=== PATIENT | female | born 1965 | race Caucasian/White ===

== ENCOUNTER → 2016-10-28 | Outpatient (CLI) | payer OTHER, MEDICAID ==
[~2016-10-28] MED LIST: GADOBUTROL 7.5 MMOL/7.5 ML VIAL ONE
== END | disposition home or self-care (01) ==
LOC: CFH 09:03
PROVIDERS: ATTEND Specialist
DX: H90.3 Sensorineural hearing loss, bilateral (principal); J31.0 Chronic rhinitis; J37.0 Chronic laryngitis; K21.9 Gastro-esophageal reflux disease without esophagitis
CPT/HCPCS: 70480; 70553; A9585

== ENCOUNTER → 2017-04-30 | Outpatient (CLI) | payer OTHER, MEDICAID | LOC: RAD 10:49 | PROVIDERS: ATTEND Internal Medicine | DX: Z01.818 Encounter for other preprocedural examination (principal) | CPT/HCPCS: 71020 ==

== ENCOUNTER → 2019-10-20 | Outpatient (CLI) | payer MEDICAID | END | disposition home or self-care (01) | LOC: RAD 08:41 | PROVIDERS: ATTEND Family Medicine | DX: R94.5 Abnormal results of liver function studies (principal); B96.81 Helicobacter pylori [H. pylori] as the cause of diseases classified elsewhere | CPT/HCPCS: 76705 ==

== ENCOUNTER 2020-10-23 06:38 | Inpatient (IN) | payer MEDICAID ==
[~2020-10-23] VITALS: Ht 167.6 cm; Wt 75.8 kg
[2020-10-23] MEDS ORDERED: SODIUM CHLORIDE 0.9% 1,000ML IVBOLUS ONE (07:00)
[2020-10-23] MEDS ORDERED: SODIUM CHLORIDE FLUSH 10ML SYR IVF ONE (07:00)
[2020-10-23 07:31] LABS: O2 FLOW ROOM AIR L/min; PH, VENOUS 7.394 pH (7.320-7.420)
[2020-10-23 07:38] LABS: MICROSCOPIC INDICATED
[2020-10-23 07:47] LABS: ALBUMIN 3.3 g/dL (3.4-5.0); ANION GAP 23 mmol/L (5-15); CALCIUM 9.2 mg/dL (8.5-10.1); CHLORIDE 90 mmol/L (98-107)
[2020-10-23 07:50] LABS: ALANINE AMINOTRANSFERASE 108 U/L (12-78); ALKALINE PHOSPHATASE 82 U/L (45-117); BILIRUBIN,TOTAL 1.1 mg/dL (0.2-1.0); CREATININE 0.78 mg/dL (0.55-1.02); TOTAL PROTEIN 7.2 g/dL (6.4-8.2)
[2020-10-23 07:56] LABS: BASOPHILS % (AUTO) 0 % (0-1); EOSINOPHILS % (AUTO) 0 % (1-7); LYMPHOCYTES % (AUTO) 11 % (22-44); MEAN CORPUSCULAR HEMOGLOBIN 31.4 pg (27.0-34.8); MEAN CORPUSCULAR HGB CONC 33.4 g/dL (32.4-35.8); MEAN PLATELET VOLUME 8.7 fL (7.4-10.4); MONOCYTES % (AUTO) 7 % (2-9); NEUTROPHILS % (AUTO) 82 % (42-75); PLATELET COUNT 110 x10^3/uL (130-400); RED BLOOD COUNT 4.07 x10^6/uL (3.82-5.3); RED CELL DISTRIBUTION WIDTH 13.3 % (9.6-15.2)
[2020-10-23 08:16] LABS: ACETONE, SERUM Large (80mg/dL) (Negative)
[2020-10-23] MEDS ORDERED: LORazepam 2 MG/ML, 1ML ONE (08:37)
--- NOTE | 2020-10-23 08:43 | NUR ---
Pt visibly shakey and reports anxiety. MD Romero made aware, verbal order recieved for 1mg Ativan IV push.
[2020-10-23] MEDS: LORazepam 2 MG/ML, 1ML IVPush PRN ×2 (08:45→09:44)
[2020-10-23] MEDS ORDERED: D5%-0.45NACL+KCL 40MEQ 1,000 ML IV SCH (09:17)
[2020-10-23] MEDS ORDERED: FOLIC ACID 1 MG in DEXTROSE 5% 50 ML IV ONE (09:30)
[2020-10-23] MEDS ORDERED: THIAMINE 100 MG in SODIUM CHLORIDE 0.9% 50 ML IVPB ONE (09:30)
[2020-10-23] MEDS ORDERED: MAGNESIUM SULFATE PMX 2GM/50ML 50 ML IV ONE (09:30)
[2020-10-23] MEDS ORDERED: POTASSIUM CHLORIDE 20 MEQ TAB.ER.PRT PO ONE (09:30)
--- NOTE | 2020-10-23 09:30 | NUR ---
Meds sent for from pharmacy.
[2020-10-23] MEDS ORDERED: MAGNESIUM SULFATE PMX 2GM/50ML 50 ML ONE (09:37)
[2020-10-23] MEDS ORDERED: POTASSIUM CHLORIDE 20 MEQ TAB.ER.PRT ONE (09:37)
--- NOTE | 2020-10-23 10:18 | NUR ---
This RN inquired with pharmacy about ETA of medications and compatibility. Per pharm: Folic acid and thiamine have to be run seperately. Magnesium and potassium should be run seperately.
--- NOTE | 2020-10-23 11:36 | NUR ---
Pt awake and alert at time of transfer. Magnesium and fluids with K remain infusing in seperate lines. Pt NSR on the monitor. 2L O2 NC. Transfered with all personal belongings including cochlear implant and respective charging device.
[2020-10-23 12:05] VITALS: BP 104/66
[2020-10-23] MEDS ORDERED: POLYETHYLENE GLYCOL 17 GM PACKET PO PRN (13:00)
[2020-10-23] MEDS ORDERED: ENALAPRILAT 1.25 MG/ML, 2ML IVPush PRN (13:00)
[2020-10-23] MEDS ORDERED: LORazepam 2 MG/ML, 1ML IV PRN ×3 (13:00)
[2020-10-23] MEDS ORDERED: LABETALOL 5MG/ML, 20ML IVPush PRN (13:00)
[2020-10-23] MEDS ORDERED: LORazepam 1MG TABLET PO PRN ×2 (13:00)
[2020-10-23] MEDS ORDERED: ONDANSETRON ODT 4 MG PO PRN (13:00)
[2020-10-23] MEDS ORDERED: DOCUSATE 100 MG CAPSULE PO PRN (13:00)
[2020-10-23] MEDS ORDERED: BISACODYL 10 MG SUPP PR PRN (13:00)
[2020-10-23] MEDS ORDERED: ONDANSETRON 2MG/ML, 2ML IVPush PRN (13:00)
[2020-10-23] MEDS ORDERED: ACETAMINOPHEN 325 MG TABLET PO PRN (13:00)
[2020-10-23] MEDS ORDERED: NS + 20MEQ KCL 1,000 ML IV SCH (13:30)
[2020-10-23] MEDS: CHLORDIAZEPOXIDE 25 MG CAPSULE PO SCH ×2 (13:30→19:35)
[2020-10-23] MEDS ORDERED: CHLORDIAZEPOXIDE 5 MG CAPSULE ONE (14:40)
[2020-10-23] MEDS: PROPRANOLOL 10 MG TABLET PO SCH ×2 (14:43→22:00)
[2020-10-23 14:53] VITALS: BP 134/84
[2020-10-23] MEDS ORDERED: NICOTINE 14MG/24 HR PATCH.TD24 ONE (16:28)
[2020-10-23] MEDS: NICOTINE 14MG/24 HR PATCH.TD24 TD SCH (16:30)
[2020-10-23] MEDS: FOLIC ACID 1 MG, THIAMINE 200 MG, MVI ADULT 10 ML in D5%-0.9% NACL 1,000 ML IV SCH (18:15)
[2020-10-23 20:55] VITALS: BP 101/68
[2020-10-23] MEDS: PANTOPRAZOLE 40MG TABLET PO SCH (21:02)
[2020-10-24] MEDS: NS + 20MEQ KCL 1,000 ML IV SCH ×3 (00:30→16:34)
[2020-10-24 00:53] VITALS: BP 104/67
[2020-10-24] MEDS: CHLORDIAZEPOXIDE 25 MG CAPSULE PO SCH ×4 (01:50→20:03)
[2020-10-24 05:03] VITALS: BP 100/66
[2020-10-24] MEDS: PROPRANOLOL 10 MG TABLET PO SCH ×3 (05:41→22:40)
[2020-10-24] MEDS: PANTOPRAZOLE 40MG TABLET PO SCH ×2 (05:46→16:33)
[2020-10-24 05:52] LABS: BASOPHILS % (AUTO) 0 % (0-1); EOSINOPHILS % (AUTO) 1 % (1-7); LYMPHOCYTES % (AUTO) 20 % (22-44); MEAN CORPUSCULAR HEMOGLOBIN 31.9 pg (27.0-34.8); MEAN CORPUSCULAR HGB CONC 33.7 g/dL (32.4-35.8); MEAN PLATELET VOLUME 8.6 fL (7.4-10.4); MONOCYTES % (AUTO) 7 % (2-9); NEUTROPHILS % (AUTO) 71 % (42-75); PLATELET COUNT 109 x10^3/uL (130-400); RED BLOOD COUNT 3.46 x10^6/uL (3.82-5.3); RED CELL DISTRIBUTION WIDTH 13.7 % (9.6-15.2)
[2020-10-24] MEDS ORDERED: PROP10TA16 PO (05:53)
[2020-10-24] MEDS ORDERED: TRAZ-175 PO (05:53)
[2020-10-24] MEDS ORDERED: DIAZ5TAB4 PO (05:53)
[2020-10-24 05:58] LABS: INTERNATIONAL NORMALIZED RATIO 0.92 (0.93-1.1); PROTHROMBIN TIME 9.9 Seconds (9.6-11.5)
[2020-10-24 06:12] LABS: CHLORIDE 107 mmol/L (98-107)
[2020-10-24 06:20] LABS: ALANINE AMINOTRANSFERASE 65 U/L (12-78); ALBUMIN 2.5 g/dL (3.4-5.0); ALKALINE PHOSPHATASE 59 U/L (45-117); ANION GAP 8 mmol/L (5-15); BILIRUBIN,TOTAL 0.6 mg/dL (0.2-1.0); CALCIUM 7.9 mg/dL (8.5-10.1); CREATININE 0.47 mg/dL (0.55-1.02); TOTAL PROTEIN 5.3 g/dL (6.4-8.2)
[2020-10-24 07:45] VITALS: BP 96/63
[2020-10-24] MEDS: K-PHOS NEUTRAL 250MG TAB PO SCH ×2 (08:42→20:03)
[2020-10-24] MEDS: POTASSIUM CHLORIDE 20 MEQ TAB.ER.PRT PO SCH (08:43)
[2020-10-24] MEDS ORDERED: CHLORDIAZEPOXIDE 10 MG CAPSULE PO SCH (09:30)
[2020-10-24 13:10] VITALS: BP 94/61
[2020-10-24] MEDS: NICOTINE 14MG/24 HR PATCH.TD24 TD SCH (16:34)
[2020-10-24] MEDS: FOLIC ACID 1 MG, THIAMINE 200 MG, MVI ADULT 10 ML in D5%-0.9% NACL 1,000 ML IV SCH (18:36)
[2020-10-24 19:35] VITALS: BP 114/76
[2020-10-24 22:34] VITALS: BP 119/80
[2020-10-24] MEDS: TRAZODONE 100MG TABLET PO PRN (22:51)
[2020-10-25] VITALS (7 sets, daily range): BP systolic 106–129; BP diastolic 73–86
[2020-10-25] MEDS: NS + 20MEQ KCL 1,000 ML IV SCH ×2 (00:57→11:02)
[2020-10-25] MEDS: CHLORDIAZEPOXIDE 25 MG CAPSULE PO SCH ×4 (00:57→20:06)
[2020-10-25] MEDS: PANTOPRAZOLE 40MG TABLET PO SCH ×2 (05:32→17:18)
[2020-10-25] MEDS: PROPRANOLOL 10 MG TABLET PO SCH ×3 (05:32→22:00)
[2020-10-25] MEDS: POTASSIUM CHLORIDE 20 MEQ TAB.ER.PRT PO SCH (08:10)
[2020-10-25] MEDS: K-PHOS NEUTRAL 250MG TAB PO SCH ×2 (08:10→20:06)
[2020-10-25 16:35] LABS: ANION GAP 6 mmol/L (5-15); CALCIUM 8.2 mg/dL (8.5-10.1); CHLORIDE 114 mmol/L (98-107); CREATININE 0.39 mg/dL (0.55-1.02)
[2020-10-25] MEDS: NICOTINE 14MG/24 HR PATCH.TD24 TD SCH (17:18)
[2020-10-25] MEDS: FOLIC ACID 1 MG, THIAMINE 200 MG, MVI ADULT 10 ML in D5%-0.9% NACL 1,000 ML IV SCH (19:54)
[2020-10-26] VITALS (7 sets, daily range): BP systolic 121–149; BP diastolic 75–98
[2020-10-26] MEDS: CHLORDIAZEPOXIDE 5 MG CAPSULE PO SCH ×2 (02:45→08:00)
[2020-10-26] MEDS: PANTOPRAZOLE 40MG TABLET PO SCH ×2 (05:52→15:40)
[2020-10-26] MEDS: PROPRANOLOL 10 MG TABLET PO SCH ×3 (05:52→20:58)
[2020-10-26] MEDS: NS + 20MEQ KCL 1,000 ML IV SCH ×2 (06:21→17:37)
[2020-10-26] MEDS: POTASSIUM CHLORIDE 20 MEQ TAB.ER.PRT PO SCH (11:18)
[2020-10-26] MEDS: K-PHOS NEUTRAL 250MG TAB PO SCH ×2 (11:18→20:58)
[2020-10-26] MEDS: LORazepam 0.5MG TABLET PO PRN (11:24)
[2020-10-26 11:27] LABS: MEAN CORPUSCULAR HEMOGLOBIN 31.6 pg (27.0-34.8); MEAN CORPUSCULAR HGB CONC 33.6 g/dL (32.4-35.8); MEAN PLATELET VOLUME 7.4 fL (7.4-10.4); PLATELET COUNT 160 x10^3/uL (130-400); RED BLOOD COUNT 3.27 x10^6/uL (3.82-5.3); RED CELL DISTRIBUTION WIDTH 14.3 % (9.6-15.2)
[2020-10-26 11:39] LABS: ALANINE AMINOTRANSFERASE 53 U/L (12-78); ALBUMIN 2.3 g/dL (3.4-5.0); ANION GAP 6 mmol/L (5-15); CALCIUM 8.2 mg/dL (8.5-10.1); CHLORIDE 113 mmol/L (98-107)
[2020-10-26 11:41] LABS: ALKALINE PHOSPHATASE 63 U/L (45-117); BILIRUBIN,TOTAL 0.4 mg/dL (0.2-1.0); TOTAL PROTEIN 5.2 g/dL (6.4-8.2)
[2020-10-26 11:53] LABS: BAND#(MANUAL) 0.02 x10^3/uL; BANDS%(MANUAL) 1 % (0-7); BASOS#(MANUAL) 0.02 x10^3/uL (0-0.1); BASOS% (MANUAL) 1 % (0-1); EOS#(MANUAL) 0.04 x10^3/uL (0.0-0.4); EOS% (MANUAL) 2 % (1-7); LYMPH#(MANUAL) 0.59 x10^3/uL (1-3.4); LYMPHS% (MANUAL) 27 % (22-44); MONOS#(MANUAL) 0.18 x10^3/uL (0.3-2.7); MONOS% (MANUAL) 8 % (2-9); SEG#(MANUAL) 1.34 x10^3/uL (1.8-6.8); SEGS% (MANUAL) 61 % (42-75)
[2020-10-26 11:54] LABS: <PLATELET ESTIMATE> ADEQUATE; <PLT MORPHOLOGY> NORMAL PLT MORPH; <RBC MORPHOLOGY> NORMAL
[2020-10-26] MEDS: NICOTINE 14MG/24 HR PATCH.TD24 TD SCH (15:35)
[2020-10-27 02:00] VITALS: BP 134/84
[2020-10-27] MEDS: NS + 20MEQ KCL 1,000 ML IV SCH ×2 (02:10→10:11)
[2020-10-27] MEDS: PANTOPRAZOLE 40MG TABLET PO SCH ×2 (05:36→15:46)
[2020-10-27] MEDS: PROPRANOLOL 10 MG TABLET PO SCH ×3 (05:38→22:23)
[2020-10-27 05:39] VITALS: BP 136/82
[2020-10-27 08:06] VITALS: BP 137/83
[2020-10-27] MEDS: K-PHOS NEUTRAL 250MG TAB PO SCH ×2 (10:08→20:05)
[2020-10-27] MEDS: POTASSIUM CHLORIDE 20 MEQ TAB.ER.PRT PO SCH (10:08)
[2020-10-27] MEDS: MAGNESIUM OXIDE 400 MG TABLET PO SCH ×2 (10:54→20:05)
[2020-10-27 12:05] VITALS: BP 154/82
[2020-10-27] MEDS: NICOTINE 14MG/24 HR PATCH.TD24 TD SCH (15:46)
[2020-10-27] MEDS: LORazepam 0.5MG TABLET PO PRN ×2 (17:30→20:05)
[2020-10-27] MEDS: TRAZODONE 100MG TABLET PO PRN ×2 (20:05→22:23)
[2020-10-27 20:19] VITALS: BP 134/90
[2020-10-27 23:19] VITALS: BP 144/92
[2020-10-28] MEDS ORDERED: ASPIRIN 81 MG TABLET CHEW PO ONE
[2020-10-28 00:35] LABS: TROPONIN I < 0.015 ng/mL (0.000-0.045)
[2020-10-28 00:41] VITALS: BP 124/84
[2020-10-28 05:33] VITALS: BP 105/65
[2020-10-28] MEDS: PANTOPRAZOLE 40MG TABLET PO SCH ×2 (05:36→15:13)
[2020-10-28] MEDS: PROPRANOLOL 10 MG TABLET PO SCH ×2 (05:36→15:13)
[2020-10-28 07:34] VITALS: BP 116/72
[2020-10-28] MEDS: POTASSIUM CHLORIDE 20 MEQ TAB.ER.PRT PO SCH (09:02)
[2020-10-28] MEDS: K-PHOS NEUTRAL 250MG TAB PO SCH (09:02)
[2020-10-28] MEDS: MAGNESIUM OXIDE 400 MG TABLET PO SCH (09:03)
[2020-10-28 12:34] VITALS: BP 134/83
[2020-10-28] MEDS ORDERED: PANT40TA6 PO (12:43)
[2020-10-28] MEDS ORDERED: MAGN400T50 PO (12:43)
[2020-10-28] MEDS ORDERED: PHOS250T PO (12:43)
[2020-10-28] MEDS: LORazepam 0.5MG TABLET PO PRN (13:56)
[2020-10-28] MEDS: NICOTINE 14MG/24 HR PATCH.TD24 TD SCH (15:13)
== END 2020-10-28 17:50 | DRG 897 ==
LOC: ED 08:28 → EDIP 09:27 → 4EST 11:51
PROVIDERS: ADMIT Internal Medicine; ATTEND Hospitalist
DX: F10.139 Alcohol abuse with withdrawal, unspecified (principal); E46 Unspecified protein-calorie malnutrition; E87.1 Hypo-osmolality and hyponatremia; E87.2 Acidosis; K92.1 Melena; D69.6 Thrombocytopenia, unspecified; E83.39 Other disorders of phosphorus metabolism; E83.42 Hypomagnesemia; E86.9 Volume depletion, unspecified; E87.6 Hypokalemia; F17.210 Nicotine dependence, cigarettes, uncomplicated; F32.9 Major depressive disorder, single episode, unspecified; F41.9 Anxiety disorder, unspecified; Z66 Do not resuscitate; Z80.0 Family history of malignant neoplasm of digestive organs; Z82.49 Family history of ischemic heart disease and other diseases of the circulatory system; Z86.19 Personal history of other infectious and parasitic diseases; Z68.27 Body mass index [BMI] 27.0-27.9, adult
CPT/HCPCS: 36415; 96360; 99285; J7042; 71045; 80048; 80053; 80320; 81001; 82010; 82803; 83735; 84100; 84484; 85025; 85610; 87086; 93005; G0378; J3411; J3480; G0480; J2060; J3475; J7030